=== PATIENT | female | born 1950 | race Two or more races ===

== ENCOUNTER 2017-07-14 13:29 | Outpatient (CLI) | payer OTHER ==
[~2017-07-14 13:29] MED LIST: ATENOLOL25 MG; BICARSIM FORTE125 MG PO; LOSARTAN-HCTZ1 EACH; PREVACID30 MG PO; SIMVASTATIN40 MG; SYNTHROID50 MCG
== END 2017-07-14 13:38 | disposition home or self-care (01) ==
LOC: MAMO-SONO 13:29
DX: Z12.31 Encounter for screening mammogram for malignant neoplasm of breast (principal); Z87.898 Personal history of other specified conditions; N60.21 Fibroadenosis of right breast; N60.22 Fibroadenosis of left breast; E04.2 Nontoxic multinodular goiter

== ENCOUNTER 2017-10-23 10:56 | Outpatient (CLI) | payer OTHER | END 2017-10-23 11:00 | disposition home or self-care (01) | LOC: SONOGRAMA 10:56 | DX: M75.51 Bursitis of right shoulder (principal) ==

== ENCOUNTER 2017-12-02 14:13 | Outpatient (CLI) | payer OTHER | END 2017-12-02 14:17 | disposition home or self-care (01) | LOC: RAD 14:13 | DX: M75.121 Complete rotator cuff tear or rupture of right shoulder, not specified as traumatic (principal) ==

== ENCOUNTER 2018-01-22 13:09 | Outpatient (CLI) | payer OTHER | END 2018-01-22 13:12 | disposition home or self-care (01) | LOC: MAMO-SONO 13:09 | DX: N60.82 Other benign mammary dysplasias of left breast (principal); Z12.31 Encounter for screening mammogram for malignant neoplasm of breast ==

== ENCOUNTER 2018-07-26 12:31 | Outpatient (CLI) | payer OTHER | END 2018-07-26 12:41 | disposition home or self-care (01) | LOC: MAMO-SONO 12:31 | DX: Z12.31 Encounter for screening mammogram for malignant neoplasm of breast (principal); Z87.898 Personal history of other specified conditions ==

== ENCOUNTER 2019-03-31 14:49 | Outpatient (CLI) | payer OTHER | END 2019-03-31 14:54 | disposition home or self-care (01) | LOC: RAD 14:49 | DX: J44.9 Chronic obstructive pulmonary disease, unspecified (principal) ==

== ENCOUNTER 2019-08-02 10:17 | Outpatient (CLI) | payer OTHER | END 2019-08-02 10:26 | disposition home or self-care (01) | LOC: MAMO-SONO 10:17 | PROVIDERS: ATTEND Family Medicine Adult Medicine | DX: Z12.31 Encounter for screening mammogram for malignant neoplasm of breast (principal) ==

== ENCOUNTER 2019-12-07 09:39 | Outpatient (CLI) | payer OTHER | END 2019-12-07 09:45 | disposition home or self-care (01) | LOC: SONOGRAMA 09:39 | PROVIDERS: ATTEND Family Medicine Adult Medicine | DX: Q44.6 Cystic disease of liver (principal); K80.80 Other cholelithiasis without obstruction ==

== ENCOUNTER 2020-08-14 10:12 | Outpatient (CLI) | payer OTHER | END 2020-08-14 10:17 | disposition home or self-care (01) | LOC: TOM 10:12 | PROVIDERS: ATTEND Family Medicine Adult Medicine | DX: G93.89 Other specified disorders of brain (principal); R42 Dizziness and giddiness | CPT/HCPCS: 70470; Q9965 ==

== ENCOUNTER 2020-11-08 09:51 | Inpatient (IN) | payer OTHER ==
[~2020-11-08] VITALS: Ht 157.5 cm; Wt 74.8 kg
--- NOTE | 2020-11-08 10:08 | NUR ---
SE RECIBE PACIENTE ALERTA Y ORIENTADA X3, REFIERE QUE DESDE HOY EN LA MADRUGADA A VOMITADO 4 VECES. SE LE NOTA MAREADA, SE LE MONITOREAN LOS S/V Y SE COLOCA EN OBSERVACION.
--- NOTE | 2020-11-08 10:53 | NUR ---
SE LE ORIENTA AL PACIENTE SOBRE LAS ORDENES MEDICAS, REFIERE ENTEDER LAS MISMAS. SE CANALIZA Y SE LE COLOCA LOS IVF'S, SE LE DIANA LAS MUETRAS DE MARIXA Y SE LE REALIZA CT ABDOMINAL LILIANE LAS ORDENES MEDICAS.
[2020-11-09] MEDS ORDERED: ATORVASTATIN CA40 MG (16:01)
[2020-11-09] MEDS ORDERED: HYDRODIURIL12.5 MG (16:01)
[2020-11-09] MEDS ORDERED: REMINYL4 MG (16:02)
[2020-11-09] MEDS ORDERED: MONTELUKAST SOD10 MG (16:02)
[2020-11-09] MEDS ORDERED: DICLOFENAC POTA50 MG (16:02)
[2020-11-09] MEDS ORDERED: LOSARTAN POTASS50 MG (16:02)
[2020-11-09] MEDS ORDERED: GABAPENTIN600 MG (16:02)
[2020-11-09] MEDS ORDERED: VITAMIN C500 M1 (16:03)
== END 2020-11-24 14:44 | disposition home health service (06) | DRG 194 ==
LOC: ER 09:51 → SEC-K 17:59 → MEDJ 17:59 → MEDI 11-09 16:50
PROVIDERS: ADMIT Internal Medicine; ATTEND Internal Medicine
PROC: 4A033R1 Measurement of Arterial Saturation, Peripheral, Percutaneous Approach (ICD-10-PCS; principal; 2020-11-08)
PROC: 02HV33Z Insertion of Infusion Device into Superior Vena Cava, Percutaneous Approach (ICD-10-PCS; 2020-11-15)
DX: J18.9 Pneumonia, unspecified organism (principal); C79.31 Secondary malignant neoplasm of brain; N39.0 Urinary tract infection, site not specified; K29.00 Acute gastritis without bleeding; Z20.822 Contact with and (suspected) exposure to COVID-19; Z87.891 Personal history of nicotine dependence; E87.6 Hypokalemia